=== PATIENT | female | born 1955 | race Caucasian/White ===

== ENCOUNTER 2021-02-02 10:09 | Inpatient (IN) | payer MEDICARE ==
[~2021-02-02] VITALS: Ht 167.6 cm; Wt 129.3 kg
[2021-02-02] MEDS ORDERED: KETOROLAC TROMETHAMINE 30 MG/ML VIAL IV STA (10:36)
[2021-02-02] MEDS ORDERED: ONDANSETRON HCL INJ 2MG/ML 2ML 2 MG/ML VIAL IV STA (10:36)
[2021-02-02] MEDS ORDERED: SODIUM CHLORIDE 0.9% 1000ML 1,000 ML IV STA (10:36)
[2021-02-02 11:30] LABS: BASOPHILS % 0.3 % (0.0-1.0); EOSINOPHILS # (AUTO) 0.1 (0.0-0.4); EOSINOPHILS % 1.2 % (0.0-6.0); HEMATOCRIT 41.8 % (34.2-44.1); HEMOGLOBIN 12.8 g/dL (12.0-16.0); LYMPHOCYTES % 22.2 % (18.0-39.1); MEAN CORPUSCULAR HEMOGLOBIN 26.7 pg (28-32); MEAN CORPUSCULAR HGB CONC 30.6 g/dL (31-35); MEAN CORPUSCULAR VOLUME 87.3 fL (81-99); MONOCYTES # (AUTO) 0.6 (0.2-0.8); MONOCYTES % 6.5 % (4.4-11.3); NEUTROPHILS # (AUTO) 6.1 (2.1-6.9); NEUTROPHILS % 69.3 % (38.7-80.0); PLATELET COUNT 291 x10e3/uL (140-360); RED BLOOD COUNT 4.79 x10e6/uL (3.6-5.1); RED CELL DISTRIBUTION WIDTH 13.6 % (11.7-14.4)
[2021-02-02 11:56] LABS: ALANINE AMINOTRANSFERASE 17 IU/L (0-55); ALBUMIN 3.4 g/dL (3.5-5.0); ALKALINE PHOSPHATASE 41 IU/L (40-150); ANION GAP 13.2 mmol/L (8-16); BLOOD UREA NITROGEN 11 mg/dL (7-26); BUN/CREATININE RATIO 14 (6-25); CALCIUM 8.2 mg/dL (8.4-10.2); CARBON DIOXIDE 22 mmol/L (22-29); CHLORIDE 110 mmol/L (98-107); CREATINE KINASE 50 IU/L (29-168); CREATININE, SERUM 0.78 mg/dL (0.57-1.11); EST GLOMERULAR FILTRATION RATE 74 ML/MIN (60-); GLUCOSE 134 mg/dL (74-118); POTASSIUM 4.2 mmol/L (3.5-5.1); SODIUM 141 mmol/L (136-145)
[2021-02-02] MEDS ORDERED: SODIUM CHLORIDE 0.9% 50ML 50 ML ONE (13:30)
[2021-02-02] MEDS ORDERED: IOPAMIDOL 370 MG/ML 200 ML INFUS..BTL INJ ONE (13:30)
[2021-02-02] MEDS: MORPHINE SULFATE INJ 4 MG/ML INJ 1ML IV PRN (15:16)
[2021-02-02] MEDS: ONDANSETRON HCL INJ 2MG/ML 2ML 2 MG/ML VIAL IV PRN (15:16)
[2021-02-02] MEDS: SODIUM CHLORIDE 0.9% 1000ML 1,000 ML IV SCH ×2 (15:16→22:51)
[2021-02-02] MEDS: LEVOFLOXACIN 500MG/D5W 100ML 100 ML IV SCH (16:34)
[2021-02-02] MEDS: METRONIDAZOLE 500MG/NS 100ML 100 ML IV SCH ×2 (17:25→23:50)
[2021-02-02 20:40] VITALS: BP 128/82
[2021-02-02 22:00] VITALS: BP 128/82
[2021-02-03] VITALS (10 sets, daily range): BP systolic 96–135; BP diastolic 51–80
[2021-02-03 04:54] LABS: BASOPHILS % 0.4 % (0.0-1.0); EOSINOPHILS # (AUTO) 0.2 (0.0-0.4); EOSINOPHILS % 2.2 % (0.0-6.0); HEMATOCRIT 35.9 % (34.2-44.1); HEMOGLOBIN 10.9 g/dL (12.0-16.0); LYMPHOCYTES # (AUTO) 2.2 (1.0-3.2); LYMPHOCYTES % 28.1 % (18.0-39.1); MEAN CORPUSCULAR HGB CONC 30.4 g/dL (31-35); MEAN CORPUSCULAR VOLUME 88.9 fL (81-99); MONOCYTES # (AUTO) 0.6 (0.2-0.8); MONOCYTES % 7.5 % (4.4-11.3); NEUTROPHILS # (AUTO) 4.8 (2.1-6.9); PLATELET COUNT 244 x10e3/uL (140-360); RED BLOOD COUNT 4.04 x10e6/uL (3.6-5.1); RED CELL DISTRIBUTION WIDTH 13.7 % (11.7-14.4)
[2021-02-03 05:19] LABS: ALBUMIN 2.8 g/dL (3.5-5.0); ANION GAP 9.4 mmol/L (8-16); CALCIUM 7.5 mg/dL (8.4-10.2); CREATININE, SERUM 0.67 mg/dL (0.57-1.11); POTASSIUM 3.4 mmol/L (3.5-5.1)
[2021-02-03] MEDS: METRONIDAZOLE 500MG/NS 100ML 100 ML IV SCH ×4 (05:42→23:15)
[2021-02-03] MEDS: SODIUM CHLORIDE 0.9% 1000ML 1,000 ML IV SCH ×3 (05:43→23:15)
[2021-02-03] MEDS: MORPHINE SULFATE INJ 4 MG/ML INJ 1ML IV PRN ×2 (12:30→18:35)
[2021-02-03] MEDS: LEVOFLOXACIN 500MG/D5W 100ML 100 ML IV SCH (15:58)
[2021-02-03] MEDS ORDERED: CEPACOL SORE THROAT LOZENGES PO PRN (19:15)
[2021-02-03] MEDS: ACETAMINOPHEN 325 MG TAB PO PRN (20:14)
[2021-02-04] VITALS (7 sets, daily range): BP systolic 126–154; BP diastolic 70–84
[2021-02-04] MEDS: MORPHINE SULFATE INJ 4 MG/ML INJ 1ML IV PRN ×5 (00:14→23:30)
[2021-02-04] MEDS: ACETAMINOPHEN 325 MG TAB PO PRN ×2 (04:30→13:36)
[2021-02-04 04:36] LABS: % IRON SATURATION 15 % (15-50); IRON 49 ug/dL (50-170); TOTAL IRON BINDING CAPACITY 318 ug/dL (261-478); TRANSFERRIN 227 mg/dL (180-382)
[2021-02-04] MEDS: METRONIDAZOLE 500MG/NS 100ML 100 ML IV SCH ×3 (05:21→17:17)
[2021-02-04 06:16] LABS: ANION GAP 7.9 mmol/L (8-16); CALCIUM 7.8 mg/dL (8.4-10.2); CREATININE, SERUM 0.62 mg/dL (0.57-1.11); POTASSIUM 3.9 mmol/L (3.5-5.1)
[2021-02-04] MEDS: SODIUM CHLORIDE 0.9% 1000ML 1,000 ML IV SCH ×3 (06:45→20:52)
[2021-02-04] MEDS ORDERED: MAGNESIUM HYDROXIDE 30 ML UDC PO ONE (12:00)
[2021-02-04 14:26] LABS: CREATINE KINASE MB 0.9 ng/mL (0-5.0)
[2021-02-04] MEDS: ONDANSETRON HCL INJ 2MG/ML 2ML 2 MG/ML VIAL IV PRN (15:21)
[2021-02-04] MEDS: LEVOFLOXACIN 500MG/D5W 100ML 100 ML IV SCH (15:21)
[2021-02-04] MEDS: DOCUSATE SODIUM 100 MG CAP PO SCH (15:21)
[2021-02-05] VITALS (7 sets, daily range): BP systolic 117–137; BP diastolic 63–70
[2021-02-05] MEDS: METRONIDAZOLE 500MG/NS 100ML 100 ML IV SCH ×4 (05:59→18:43)
[2021-02-05] MEDS: ACETAMINOPHEN 325 MG TAB PO PRN ×2 (07:49→16:45)
[2021-02-05] MEDS ORDERED: MAGNESIUM HYDROXIDE 30 ML UDC PO ONE (09:00)
[2021-02-05] MEDS: DOCUSATE SODIUM 100 MG CAP PO SCH ×2 (09:03→16:38)
[2021-02-05] MEDS ORDERED: BISACODYL 10 MG SUPP PR ONE (11:25)
[2021-02-05] MEDS: LEVOFLOXACIN 500MG/D5W 100ML 100 ML IV SCH (16:38)
[2021-02-05] MEDS: ONDANSETRON HCL INJ 2MG/ML 2ML 2 MG/ML VIAL IV PRN (21:52)
[2021-02-06] VITALS: BP 129/64
[2021-02-06] MEDS: METRONIDAZOLE 500MG/NS 100ML 100 ML IV SCH ×2 (00:20→06:10)
[2021-02-06] MEDS: CYANOCOBALAMIN INJ 1,000 MCG/ML VIAL IM ONE ×2 (03:32→03:37)
[2021-02-06 04:00] VITALS: BP 130/74
[2021-02-06 07:45] VITALS: BP 141/76
[2021-02-06 07:53] VITALS: BP 141/76
[2021-02-06] MEDS ORDERED: CYANOCOBALAMIN INJ 1,000 MCG/ML VIAL IM SCH (09:00)
[2021-02-06] MEDS ORDERED: IRON SUCROSE 100 MG in SODIUM CHLORIDE 0.9% 100 ML 100 ML IV SCH (09:00)
[2021-02-06] MEDS: DOCUSATE SODIUM 100 MG CAP PO SCH (09:00)
[2021-02-06] MEDS ORDERED: ONDANSETRON HCL 4 MG ORAL DISINTEGRATING TAB PO PRN (10:15)
[2021-02-07] MEDS ORDERED: CYANOCOBALAMIN INJ 1,000 MCG/ML VIAL IM SCH (09:00)
== END 2021-02-06 11:11 | disposition home or self-care (01) | DRG 392 ==
LOC: ER 11:36 → ERHOLD 14:41 → MED/SURG3 20:35 → OBSVTOIN 02-03 14:51
DX: K57.32 Diverticulitis of large intestine without perforation or abscess without bleeding (principal); N20.1 Calculus of ureter; Z68.42 Body mass index [BMI] 45.0-49.9, adult; Z88.0 Allergy status to penicillin; Z88.2 Allergy status to sulfonamides; Z91.040 Latex allergy status; R07.9 Chest pain, unspecified; E66.01 Morbid (severe) obesity due to excess calories; K76.0 Fatty (change of) liver, not elsewhere classified; D64.9 Anemia, unspecified; Z20.822 Contact with and (suspected) exposure to COVID-19
CPT/HCPCS: 36415; 74177; 80048; 80053; 82550; 82553; 82607; 82746; 82948; 83540; 83690; 84466; 84484; 85025; 85045; 93005; 93306; 99251; 99284; G0378; J1756; J1885; J1956; J2270; J2405; J3420; J7030; Q9967; U0002